=== PATIENT | female | born 1975 | race Caucasian/White ===

== ENCOUNTER 2018-02-21 09:49 | Emergency (ER) | payer SELFPAY ==
[2018-02-21] VITALS (9 sets, daily range): BP systolic 121–169; BP diastolic 64–95; PULSE 73–103; RESP 8–20; TEMP 36.3–36.9; O2SAT 95–100; BMI 34.1
--- NOTE | 2018-02-21 10:04 | DI.RAD.S_ITS ---
PROCEDURE: XR CHEST 1V INDICATIONS: chest pain TECHNIQUE: One view of the chest was acquired. COMPARISON: None. FINDINGS: Surgical changes and devices: None. Lungs and pleura: No pleural effusions or pneumothorax. Lungs are clear. Mediastinum: Mediastinal contours appear normal. Heart size is normal. Bones and chest wall: No suspicious bony lesions. Overlying soft tissues appear unremarkable. IMPRESSION: No acute process. Dictated by: Balbir Dumont M.D. on 02/21/2018 at 10:37 Approved by: Balbir Dumont M.D. on 02/21/2018 at 10:37
[2018-02-21] MEDS: ASPIRIN 81 MG TAB 324 MG PO (10:10)
[2018-02-21 10:16] LABS: Add Manual Diff / Slide Review NO; Basophils Percent Auto 0.4 % (0-2); Eosinophils Percent Auto 2.6 % (2-4); Hematocrit 37.6 % (36-46); Hemoglobin 13.2 g/dL (12.0-16.0); Lymphocytes Percent Auto 29.3 % (25-40); Mean Corpuscular HGB Conc 35.2 % (30-36); Mean Corpuscular Hemoglobin 30.4 PG (26-34); Mean Corpuscular Volume 86.3 fL (80-100); Monocytes Percent Auto 7.3 % (3-14); Neutrophils Absolute Auto 4400 /uL (3000-5900); Neutrophils Percent Auto 60.4 % (50-75); Platelet Count 302 X10^3/uL (150-400); Red Blood Cell Count 4.36 X10^6/uL (4.0-5.2); Red Cell Distribution Width 13.2 % (11.6-14.8); White Blood Cell Count 7.3 X10^3/uL (4.5-11.0)
[2018-02-21] MEDS: NITROGLYCERIN 0.4 MG SL TAB SL ×2 (10:18→10:28)
--- NOTE | 2018-02-21 10:21 | ED_ITS ---
HPI - Chest Pain General Chief Complaint: Chest Pain Stated Complaint: CHEST PAIN Time Seen by Provider: 02/21/18 10:01 Source: patient Mode of arrival: ambulatory Limitations: no limitations History of Present Illness HPI narrative: Patient states that she has had chest pressure since 1700 yesterday. She states that she has had no other associated symptoms, and that the discomfort is substernal. She states that she has a history of GERD which is severe and she tried everything to treat from that perspective, but the discomfort has not abated. Patient states that she has not had any respiratory symptoms; no fever or lower extremity edema or pain. She states that she has a strong family history of coronary artery disease. She states her father of an [place] at 59 after having had a quadruple bypass a year before and several MIs before that. She states her mother of congestive heart failure in her 60s. Patient states that her brother just in November of a massive heart attack. Patient states that about 10 years ago, she had similar symptoms to this and had a full cardiac workup including catheterization, all of which was negative. She was told she should be on an aspirin a day, which she states that she tries to take. Patient states that she had a similar episode to this 1 week ago, but that it was able to go away on its own. She states that she walks her dog every other day and has never had any chest discomfort or other concerning symptoms with this. She states that until about a year ago, and she went to the gym a few times a week, and never had any problem with that either. She states she has not been going because she has been busy. Patient denies diabetes, hypertension, hyperlipidemia, smoking, or known cardiac disease in herself. Pain location: substernal Severity: moderate Severity scale (1-10): 6 Quality: heaviness Pain radiation: none Relieving factors: nothing Exacerbating factors: nothing Context: other ( See above) Associated symptoms: other ( none) Treatments prior to arrival chest pain: none Related Data Home Medications Medication Instructions Recorded Confirmed aspirin 81 mg PO DAILY 02/21/18 02/21/18 oxycodone-acetaminophen [Percocet] 1 tab PO .ONCE 02/21/18 02/21/18 Allergies Allergy/AdvReac Type Severity Reaction Status Date / Time No Known Drug Allergies Allergy Verified 02/21/18 09:56 Review of Systems Review of Systems All systems reviewed & are unremarkable except as noted in HPI and below Constitutional Denies chills, Denies fever(s), Denies lethargy and Denies weakness Eyes Denies change in vision, Denies eye discharge, Denies irritation and Denies loss of vision ENT Ears, Nose, Mouth, and Throat: Denies change in voice, Denies neck pain and Denies sore throat Cardiovascular Reports chest pain ( pressure), Denies irregular heart rhythm, Denies lightheadedness, Denies palpitations, Denies dyspnea, Denies dyspnea on exertion and Denies orthopnea Respiratory Denies cough, Denies dyspnea, Denies dyspnea on exertion and Denies wheezing Gastrointestinal Gastrointestinal: Denies abdominal pain, Denies change in bowel habits, Denies diarrhea, Denies nausea and Denies vomiting Genitourinary Denies hematuria, Denies flank pain, Denies urinary incontinence and Denies urinary urgency Musculoskeletal Denies neck pain Integumentary/Breasts Denies pruritus, Denies erythema, Denies rash and Denies wounds Neurologic Denies confusion, Denies loss of vision and Denies weakness Psychiatric Denies anxiety, Denies confusion, Denies depression, Denies homicidal ideation and Denies suicidal ideation Endocrine Denies palpitations Hematologic/Lymphatic Denies easy bruising Allergic/Immunologic Denies wheezing PFSH Surgical History H/O cardiac catheterization (Acute) Family History Father [place] (myocardial infarction) Brother [place] (myocardial infarction), Onset Age: 41 Social History Smoking Status: Never smoker Exam Initial Vital Signs Initial Vital Signs: Vital Signs Temperature 98.5 F 02/21/18 09:56 Pulse Rate 87 02/21/18 09:56 Respiratory Rate 20 02/21/18 09:56 Blood Pressure 156/95 H 02/21/18 09:56 Pulse Oximetry 100 02/21/18 09:56 Const General: cooperative and well developed Nutritional Appearance: well nourished Orientation: alert, awake, oriented x3 and not confused [facility] Head: normocephalic and atraumatic Ears: external ears normal Nose: external nose normal and No nasal discharge Face and sinus: face symmetric and No dry mucous membranes Mouth: oral mucosae normal and moist mucous membranes Eyes General: appearance normal, both eyes and all related structures Eyelids: eyelids normal Conjunctivae: conjunctivae normal Sclera: sclerae normal Pupils: PERRL EOM: EOM intact bilaterally Neck Neck: normal visual inspection, trachea midline, No lymphadenopathy, No midline deformity and No JVD Lymphatic: No lymphedema Chest Chest: normal inspection of the chest Resp Effort & Inspection: normal respiratory effort, able to speak in complete sentences, no respiratory distress and no use of accessory muscles Auscultation: clear to auscultation bilaterally, no rales, no rhonchi and no wheezes Cardio Rate: regular rate Rhythm: regular rhythm Heart Sounds: no click, no gallops, no murmurs and no rubs Pulses: normal peripheral pulses GI Inspection: non-distended Palpation: soft, no hepatosplenomegaly, No guarding, No pulsatile mass and No tender Auscultation: normal bowel sounds Back/Spine/Pelvis Back: No CVA tenderness Cervical Spine: cervical ROM normal and No pain with cervical ROM Thoracic/Lumbar Spine: thoracic and lumbar spine normal to inspection Skin General: no rashes or lesions noted, No jaundice and No petechiae Neuro General: alert, oriented x3, gait normal and no focal motor deficits Speech: speech normal Extrem General: full ROM, no clubbing, cyanosis or edema, no pedal edema and no calf tenderness Psych Appearance: well kempt Mental Status: mental status grossly normal Attitude: cooperative Thought Content: normal and suicidality Judgment: judgment good Course Course Narrative: patient was well appearing in the emergency department, but she did have a significant family history of coronary artery disease. I discussed with her that we would work her up from a cardiac perspective, though symptoms could potentially be related to GERD also. Patient was given a nitroglycerin in the emergency department, which brought her pain from a 6 to a 2. she is receiving a 2nd dose of nitroglycerin as this documentation is being made. I have discussed with her that at this point, after 17 hr of discomfort, I would expect her troponin to be positive if she has had an [place]. If troponin is negative, my plan will be to arrange expedited Cardiology follow-up for her. Patient is agreeable to this plan. Orders Ordered: Discontinued Medications Aspirin (Aspirin Chew) 324 mg PO NOW ONE Stop: 02/21/18 10:07 Last Admin: 02/21/18 10:10 Dose: 324 mg Nitroglycerin (Nitrostat) 0.4 mg SL [id number] PRN PRN Reason: Chest Pain Last Admin: 02/21/18 10:28 Dose: 0.4 mg Admin: 02/21/18 10:18 Dose: 0.4 mg Vital Signs - 8 hr 02/21/18 11:54 02/21/18 12:34 Temperature 97.4 F L Pulse Rate 73 Respiratory Rate 17 16 Blood Pressure 121/64 Blood Pressure [Right Arm] 129/91 H Pulse Oximetry 99 MDM - Chest Pain Medical Records Data Attestation: I reviewed the patient's medical records. Lab Data Attestation: I reviewed the patient's lab results. Result diagrams: 02/21/18 10:00 02/21/18 10:00 Lab Results 02/21/18 02/21/18 02/21/18 Range/Units 10:00 10:00 10:00 WBC 7.3 (4.5-11.0) X10^3/uL RBC 4.36 (4.0-5.2) X10^6/uL Hgb 13.2 (12.0-16.0) g/dL Hct 37.6 (36-46) % MCV 86.3 (80-100) fL MCH 30.4 (26-34) PG MCHC 35.2 (30-36) % RDW 13.2 (11.6-14.8) % Plt Count 302 (150-400) X10^3/uL Neut % (Auto) 60.4 (50-75) % Lymph % (Auto) 29.3 (25-40) % Charlton % (Auto) 7.3 (3-14) % Eos % (Auto) 2.6 (2-4) % Baso % (Auto) 0.4 (0-2) % Neut # (Auto) 4400 (6496-3656) /uL PT 10.8 (10.1-12.7) SECONDS INR 1.0 (0.9-1.3) APTT 31 (26.4-36.2) SECONDS D-Dimer (<230) ng/mL Sodium 144 (137-145) mmol/L Potassium 3.8 (3.4-5.1) mmol/L Chloride 102 (98-107) mmol/L Carbon Dioxide 28 (22-32) mmol/L BUN 9 (7-17) mg/dL Creatinine 0.70 (0.52-1.04) mg/dL Estimated GFR > 60.0 (>60) mL/min BUN/Creatinine Ratio 12.9 (6-22) Glucose 117 H (70-100) mg/dL Calcium 9.5 (8.4-10.2) mg/dL Total Bilirubin 0.4 (0.2-1.3) mg/dL AST 31 (14-36) IU/L ALT 38 (9-52) IU/L Alkaline Phosphatase 93 (38-126) U/L Total Creatine Kinase 34 (30-135) U/L Troponin I < 0.012 (0.01-0.034) ng/mL Total Protein 8.2 (6.3-8.2) g/dL Albumin 4.7 (3.5-5.0) g/dL Globulin 3.5 (1.7-4.1) g/dL Albumin/Globulin Ratio 1.3 (1.0-2.8) Lipase 46 (23-300) U/L 02/21/18 Range/Units 10:00 WBC (4.5-11.0) X10^3/uL RBC (4.0-5.2) X10^6/uL Hgb (12.0-16.0) g/dL Hct (36-46) % MCV (80-100) fL MCH (26-34) PG MCHC (30-36) % RDW (11.6-14.8) % Plt Count (150-400) X10^3/uL Neut % (Auto) (50-75) % Lymph % (Auto) (25-40) % Charlton % (Auto) (3-14) % Eos % (Auto) (2-4) % Baso % (Auto) (0-2) % Neut # (Auto) (1218-8524) /uL PT (10.1-12.7) SECONDS INR (0.9-1.3) APTT (26.4-36.2) SECONDS D-Dimer < 200 (<230) ng/mL Sodium (137-145) mmol/L Potassium (3.4-5.1) mmol/L Chloride (98-107) mmol/L Carbon Dioxide (22-32) mmol/L BUN (7-17) mg/dL Creatinine (0.52-1.04) mg/dL Estimated GFR (>60) mL/min BUN/Creatinine Ratio (6-22) Glucose (70-100) mg/dL Calcium (8.4-10.2) mg/dL Total Bilirubin (0.2-1.3) mg/dL AST (14-36) IU/L ALT (9-52) IU/L Alkaline Phosphatase (38-126) U/L Total Creatine Kinase (30-135) U/L Troponin I (0.01-0.034) ng/mL Total Protein (6.3-8.2) g/dL Albumin (3.5-5.0) g/dL Globulin (1.7-4.1) g/dL Albumin/Globulin Ratio (1.0-2.8) Lipase (23-300) U/L Imaging Data Chest x-ray: Attestation: I personally reviewed and interpreted this imaging study as follows: My impression: Negative Radiologist's impression: PROCEDURE: XR CHEST 1V INDICATIONS: chest pain TECHNIQUE: One view of the chest was acquired. COMPARISON: None. FINDINGS: Surgical changes and devices: None. Lungs and pleura: No pleural effusions or pneumothorax. Lungs are clear. Mediastinum: Mediastinal contours appear normal. Heart size is normal. Bones and chest wall: No suspicious bony lesions. Overlying soft tissues appear unremarkable. IMPRESSION: No acute process. Dictated by: Balbir Dumont M.D. on 02/21/2018 at 10:37 Approved by: Balbir Dumont M.D. on 02/21/2018 at 10:37 ECG Data Attestation: I personally reviewed and interpreted this ECG as follows: ( See below) Prior ECG tracings: not available for review Interpretation: a 12 lead EKG performed on February 21, 2018 at 9:51 a.m. as follows: Regular ventricular rhythm with a rate of 93 beats per minute [place] interval 152 milliseconds QRS duration 102 milliseconds QTC interval 415 millisecond axis normal interpretation: Normal sinus rhythm with nonspecific T-wave abnormality; borderline EKG interpreted by ED MD MDM Narrative Medical decision making narrative: Patient workup in the emergency department was negative. I did speak with Dr. wing kowalski, who agreed to follow up with the patient in the clinic either himself, or 1 of his colleagues. He stated that given the patient's age and lack of other risk factors, she was still fairly low risk for coronary artery disease, but that her family history was a concern. I discussed this with the patient who is agreeable to this plan. We did discuss the usual indications for return, particularly worsening chest pain associated with shortness of breath, diaphoresis, nausea, lightheadedness, or sense of impending doom. Discharge Plan Departure Patient Disposition: Home Clinical Impression: Chest discomfort Discharge Date/Time: 02/21/18 12:34 Interventions: ED Discharge Assessment Last Done: 02/21/18 12:34 Instructions: DI for Chest Pain Activity Restrictions/Additional Instructions: All of your tests looked good. There is no evidence of a heart attack or other emergent cause of your chest pain this time. Your case has been discussed with Dr. Palencia of Cardiology at [facility]. He will have his office call you to set up an appointment with himself or one of his colleagues. We would also like you to get established with a primary care doctor, as well. If you have worsening of your pain, especially if it is associated with shortness of breath, facial sweating, or nausea, you should return to the emergency department without delay. Otherwise, be sure to take your aspirin every single day. Prescriptions: No Action aspirin 81 mg Tablet,Delayed Release (Dr/Ec) 81 mg PO DAILY RF: 0 oxycodone-acetaminophen [Percocet] 5-325 mg Tablet 1 tab PO .ONCE RF: 0 Referrals: [facility] [Provider Group] ( Please call to set up an appointment to get established with a primary care doctor.) [facility] Cardiology [Provider Group] ( Please call tomorrow if you have not heard from the office by the end of today.)
[2018-02-21 10:29] LABS: Prothrombin Time 10.8 SECONDS (10.1-12.7)
[2018-02-21 10:30] LABS: Alanine Aminotransferase 38 IU/L (9-52); Albumin 4.7 g/dL (3.5-5.0); Albumin Globulin Ratio 1.3 (1.0-2.8); Alkaline Phosphatase 93 U/L (38-126); Aspartate Aminotransferase 31 IU/L (14-36); BUN Creatinine Ratio 12.9 (6-22); Bilirubin Total 0.4 mg/dL (0.2-1.3); Blood Urea Nitrogen 9 mg/dL (7-17); Calcium 9.5 mg/dL (8.4-10.2); Carbon Dioxide 28 mmol/L (22-32); Chloride 102 mmol/L (98-107); Creatine Kinase 34 U/L (30-135); Estimated Glomerular Filt Rate > 60.0 mL/min (>60); Globulin 3.5 g/dL (1.7-4.1); Glucose 117 mg/dL (70-100); HEMOLYSIS < 15 (0-50); Lipase 46 U/L (23-300); Potassium 3.8 mmol/L (3.4-5.1); Sodium 144 mmol/L (137-145); Total Protein 8.2 g/dL (6.3-8.2)
[2018-02-21 10:31] LABS: PTT Partial Thromboplastin Tim 31 SECONDS (26.4-36.2)
[2018-02-21 10:42] LABS: Troponin I < 0.012 ng/mL (0.01-0.034)
[2018-02-21 12:10] LABS: D Dimer < 200 ng/mL (<230)
== END 2018-02-21 12:34 | disposition home or self-care (01) ==
PROVIDERS: Emergency Provider Emergency Medicine
DX: R07.89 Other chest pain (principal)
CPT/HCPCS: 36591; 71045; 80053; 82550; 82553; 83690; 84484; 85025; 85379; 85610; 85730; 93005; 99283; 99285